=== PATIENT | female | born 1970 | race Caucasian/White ===

== ENCOUNTER 2024-01-23 06:03 | Day surgery (SDC) | payer BC, SELFPAY ==
[2024-01-23] VITALS (8 sets, daily range): BP systolic 93–106; BP diastolic 48–64; BMI 20.5
[2024-01-23] MEDS: NORMOSOL-R 1000 IV (06:38)
--- NOTE | 2024-01-23 06:57 | HP.FOC2 ---
Addendum entered and electronically signed by Jayme Ashton MD 01/23/24 07:21:
pt also reports right sided pain at semilunar line, umbilical level with intermittent swelling. after discussion regarding options - observation, radiographic imaging, dx laparoscopic with associated risks/benefits she is requesting dx lap for
eval. procedure reviewed with patient obtaining consent. at bedside.
Original Note:
Focused History & Physical
Chief Complaint
HPI:
Chief Complaint: Ventral hernia
HPI / Indication for Planned Procedure: Patient is a 53-year-old female who has had a long standing history of a small protrusion present just superior to the umbilical region. This is slightly larger in size than previously and occasional
tenderness/discomfort in the area with exertional activities or exercise. She presents today for scheduled operative correction.
Relevant Past Medical History: Other (Hypothyroidism, allergic rhinitis)
Relevant Social History: Negative
Relevant Family History: Negative
Relevant Past Surgical History: Positive for (Tonsils)
Review of Systems
Review of Pertinent Systems: All Systems Negative
Medication
See Medication form for detailed medications: Yes
Medication List (including Herbals & OTC):
Glucosamine Chondroitin 2 cap PO DAILY 01/18/24
Multi-Vitamin 1 tab PO DAILY 01/18/24
Vitamin C 1 tab PO PRN PRN preventative 01/18/24
calcium-vitamin D3 3 tab PO DAILY 01/18/24
levothyroxine 88 mcg tablet (Synthroid) 88 mcg PO .6 DAYS/WEEK 01/18/24
magnesium glycinate 2 cap PO DAILY 01/18/24
Medications Reviewed: Yes
Allergies and Reactions
Patient has Allergies: Yes
Noted Allergies and Reactions:
Allergy/AdvReac Type Severity Reaction Status Date / Time
adhesive tape Allergy Rash Verified 01/23/24 06:19
Sulfa (Sulfonamide Allergy Rash Verified 01/23/24 06:19
Antibiotics)
Pertinent Physical Exam
All Other Systems: Negative
Head/Neck: Normal
Lungs: Normal
Heart: Normal
Abdomen: Other (Supraumbilical ventral hernia)
Extremities: Normal
Neurological: Normal
Diagnosis / Assessment
53-year-old female presenting for scheduled operative correction of supraumbilical ventral hernia
Plan / Procedure
Open ventral hernia pair, possible mesh
Anesthesia/Sedation to be done by Anesthesia Provider: Yes
--- NOTE | 2024-01-23 06:59 | W.SUR.PREOP ---
Pre-Operative Surgical Note
-
I have examined this patient prior to the performance of the scheduled procedure.
The patient's condition is unchanged from the time of the current History and
Physical and the patient is able to undergo the scheduled procedure.
--- NOTE | 2024-01-23 08:31 | W.IMMPOSTOP ---
Addendum entered and electronically signed by Jayme Ashton MD 01/23/24 08:43:
#[id number]
Original Note:
Surgical Immed Post Op Note
-
Primary Surgeon: Poli
Assisting Surgeon: Dotty Odom
Pre-op Diagnosis: VH and R abdominal pain
Post-op Diagnosis: VH 5mm
Procedure Performed: Dx Laparoscopy; Open primary VHR
Anesthesia Type: GETA + 0.25% Marcaine
Specimen / Cultures: none
Estimated Blood Loss: 4mL
Complications: none immediate
Operative Findings: 5mm VH - utilized for dx lap - single trochar site; primary repair 0 -pds. dx lap unremarkable, no additional hernias or adhesions noted.
== END 2024-01-23 10:35 | disposition home or self-care (01) ==
LOC: SDS 06:03
PROVIDERS: ATTENDING PHYSICIAN Surgery
DX: K43.9 Ventral hernia without obstruction or gangrene (principal); R10.9 Unspecified abdominal pain
CPT/HCPCS: 49320; 49591

== ENCOUNTER → 2024-02-09 10:16 | Outpatient (REF) | payer BC, SELFPAY ==
[2024-02-09 12:42] LABS: Free T4 1.47 ng/dl (0.78-2.19)
[2024-02-09 12:57] LABS: TSH 3.51 uIU/ml (0.47-4.68)
== END ==
LOC: REG 10:16
PROVIDERS: ATTENDING PHYSICIAN Internal Medicine Endocrinology, Diabetes & Metabolism; FAMILY PHYSICIAN Internal Medicine
DX: E03.9 Hypothyroidism, unspecified (principal)
CPT/HCPCS: 36415; 84439; 84443

== ENCOUNTER → 2024-04-16 08:23 | Outpatient (REF) | payer BC, SELFPAY | LOC: RAD 08:23 | PROVIDERS: ATTENDING PHYSICIAN Internal Medicine Cardiovascular Disease; FAMILY PHYSICIAN Internal Medicine | DX: E78.00 Pure hypercholesterolemia, unspecified (principal) | CPT/HCPCS: 93922 ==

== ENCOUNTER 2024-05-11 19:48 | Emergency (ER) | payer BC, SELFPAY ==
[2024-05-11 19:50] VITALS: BP 111/68
--- NOTE | 2024-05-11 20:34 | ED.SKININJ ---
HPI-Injury
General
Chief Complaint: Bite
Source: patient
Exam Limitations: none
Time Seen by Provider: 05/11/24 20:26
Nursing documentation reviewed up to this point in time: agreed with
Travel History
Have you had any contact with someone who has COVID-19?: No
Do you have any symptoms of coronavirus? Fever > 100 degrees, chills, cough, shortness of breath, sore throat, loss of taste or smell, muscle aches, or headache?: No
History of Present Illness-Injury
Initial Injury comments:
54 yo female with puppy bite on nose . Her face was close to the puppy and he had a toy so he nipped her nose. She is unsure of her last tetanus immunization but wants to call her PCP to find if she needs 1
Past History
Past History
ED Past Medical History: Hypothyroidism
Social History
Tobacco: Non-smoker
Personal:
Living: with family
Review of Systems
Review of Systems
Allergies reviewed?: Yes
All Other Systems: ROS reviewed and negative except as documented in HPI and ROS
Skin: Reports other (Dog bite of nose)
Skin Exam
Laceration
tip of nose:
Length in cm: 0.6
Orientation: horizontal
Type of Laceration: simple (relatively superficial laceration.)
Any active bleeding?: no active bleeding
Phy Exam
Physical Exam
Physical Exam:
PHYSICAL EXAMINATION:
General: no apparent distress, not acutely ill
Neuro: alert and oriented.
Psychiatric: well kept. interactive and cooperative
Musculoskeletal: Moves with ease
Skin: Warm, pink.
Course
Orders/Labs/Results
Orders:
Orders
05/11/24 20:40
Amoxicillin 875 mg/Clav 125 mg [Augmentin 875 mg/125 mg] 1 tablet PO NOW STA
Vital Signs
Initial and Last Documented VS:
Initial Vital Signs
Temp Pulse Resp BP Pulse Ox
97.8 F 71 14 111/68 98
05/11/24 19:50 05/11/24 19:50 05/11/24 19:50 05/11/24 19:50 05/11/24 19:50
Last Documented Vital Signs
Temp Pulse Resp BP Pulse Ox
97.8 F 71 14 111/68 98
05/11/24 19:50 05/11/24 19:50 05/11/24 19:50 05/11/24 19:50 05/11/24 19:50
Procedures
Laceration Closure
tip of nose:
Status of Wound: clean
Size of Wound in cm: 0.6
Description of Wound Edges: sharp
Preparation: cleaned with saline
Type of Closure: Dermabond-skin glue (edges well approximated)
MDM/Problems Addressed
MDM/Problems Addressed:
54 yo female with puppy bite on nose . Her face was close to the puppy and he had a toy so he nipped her nose. She is unsure of her last tetanus immunization but wants to call her PCP to find if she needs 1
Puppy is up-to-date with its immunizations
No gaping wound, after irrigating copiously with NSS, edges well approximated with wound glue
antibiotics started
She declines when Tdap ordered and states she will check with her PCP and get it if due.
*Critical Care Note
Total Time (30-74mins, 75-104mins- exclusive of procedures): Not Applicable
ED Attending Note
-
Portions of this chart may have been created with voice recognition software.� Occasional wrong word or��sound alike� substitutions may have occurred due to the inherent limitations of voice recognition software.
Discharge Plan
Departure
Patient Disposition: Home (Routine Discharge)
Date of Disposition: 05/11/24
Time of Disposition: 20:51
Patient with high blood pressure during this ER visit?: No
Condition: Good
Discharge Problem:
Dog bite of nose
Instructions: Animal Bites (DC)
Prescriptions:
New
amoxicillin-pot clavulanate 875-125 mg tablet
1 tab PO BID Qty: 13 0RF
No Action
levothyroxine [Synthroid] 88 mcg Tablet
88 mcg PO .6 DAYS/WEEK
Rx Instructions:
Patient must have actual SYNTHROID, not levothyroxine
Glucosamine Chondroitin
2 cap PO DAILY
Multi-Vitamin
1 tab PO DAILY
Vitamin C
1 tab PO PRN PRN (Reason: preventative)
calcium-vitamin D3 300 mg tablet
3 tab PO DAILY
magnesium glycinate
2 cap PO DAILY
acetaminophen [Tylenol Extra Strength] 500 mg tablet
1,000 mg PO Q6HPRN PRN (Reason: mild pain) Qty: 1 0RF
ibuprofen 200 mg tablet
400 - 600 mg PO Q6HPRN PRN (Reason: moderate pain) Qty: 1 0RF
polyethylene glycol 3350 [Miralax] 17 gram/dose powder
4 g PO DAILY PRN (Reason: Constipation) Qty: 119 0RF
Rx Instructions:
start a laxative such as MIRALAX on day 2 after surgery if no bowel movement yet as long as no nausea/vomiting and passing gas
oxycodone 5 mg tablet
5 mg PO Q4HPRN PRN (Reason: breakthrough/severe pain) Qty: 5 0RF
Referrals:
Your, doctor [Other] - As needed
UNKNOWN - PT DOES,NOT KNOW [Family Provider] -
Activity Restrictions/Additional Instructions:
As we discussed, it takes about 7 days for this area to heal. The glue should slough off by itself within 10 days.
Seek medical care immediately for increasing redness, swelling, pus drainage, fever or feeling worse in any way.
I sent a prescription to your pharmacy for the Augmentin 875 mg to take twice a day for 7 days. While taking the antibiotic, take a probiotic or eat yogurt daily to avoid diarrhea
Interventions
Interventions:
*Risk Screen - Suicide Last Done: 05/11/24 19:50
*General Assessment Last Done: 05/11/24 19:50
*Neglect/Abuse Screening Last Done: 05/11/24 19:50
ED- Fall Risk Assessment Last Done: 05/11/24 20:55
*Nursing Disposition Last Done: 05/11/24 20:55
ED-Skin Assessment Last Done: 05/11/24 19:59
Discharge Date and Time
Discharge Date/Time: 05/11/24 20:55
Print Language: UPPER SORBIAN
[2024-05-11] MEDS: AUGMENTIN 875 MG/125 MG 1 TABLET PO (20:50)
[2024-05-12] MEDS: ADACEL 0.5 ML IM (00:54)
== END 2024-05-11 20:55 | disposition home or self-care (01) ==
LOC: EMR 19:48
PROVIDERS: EMERGENCY PHYSICIAN Emergency Medicine
DX: S01.25XA Open bite of nose, initial encounter (principal); W54.0XXA Bitten by dog, initial encounter; E03.9 Hypothyroidism, unspecified; Z88.2 Allergy status to sulfonamides; Z91.048 Other nonmedicinal substance allergy status
CPT/HCPCS: 99283; 12011; 90715

== ENCOUNTER → 2024-05-22 08:00 | Outpatient (REF) | payer BC, SELFPAY | LOC: WOUND 08:00 | PROVIDERS: ATTENDING PHYSICIAN Surgery; FAMILY PHYSICIAN Family Medicine | DX: S01.25XA Open bite of nose, initial encounter (principal); W54.0XXA Bitten by dog, initial encounter | CPT/HCPCS: 99203 ==

== ENCOUNTER → 2025-01-01 07:46 | Outpatient (REF) | payer BC, SELFPAY ==
[2025-01-01 09:47] LABS: Free T4 1.22 ng/dl (0.78-2.19)
[2025-01-01 10:00] LABS: TSH 0.53 uIU/ml (0.47-4.68)
== END ==
LOC: REG 07:46
PROVIDERS: ATTENDING PHYSICIAN Internal Medicine Endocrinology, Diabetes & Metabolism; FAMILY PHYSICIAN Internal Medicine
DX: E03.9 Hypothyroidism, unspecified (principal)
CPT/HCPCS: 36415; 84439; 84443

== ENCOUNTER → 2025-06-10 06:44 | Outpatient (REF) | payer BC, SELFPAY ==
[2025-06-10 07:39] LABS: Hematocrit 38.8 % (37.0-47.0); Hemoglobin 12.8 g/dL (12.0-16.0); Mean Corp Hgb Conc. 33.0 g/dL (33.0-37.0); Mean Corpuscular Volume 91.3 fL (81.0-99.0); Nucleated Red Blood Cells % 0 %; Platelet Count 128 10^3/uL (130-400); Red Cell Dist. Width 12.7 % (11.5-14.5)
[2025-06-10 08:12] LABS: ALT (SGPT) 26 U/L (0-35); AST (SGOT) 29 U/L (14-36); Albumin 4.4 g/dl (3.5-5.0); Alkaline Phosphatase 57 U/L (38-126); Blood Urea Nitrogen 10 mg/dl (7-17); Calcium 9.5 mg/dl (8.4-10.2); Carbon Dioxide 29 mmol/L (22-30); Chloride 107 mmol/L (98-107); Glucose 95 mg/dl (70-99); HDL Cholesterol 52 mg/dl; LDL Cholesterol, Calculated 121 mg/dl; Potassium 4.5 mmol/L (3.5-5.1); Sodium 140 mmol/L (135-145); Total Protein 6.9 g/dl (6.3-8.2); Very Low Density Lipoprotein 12 mg/dl (0-30); eGFR > 60.00
== END ==
LOC: REG 06:44
PROVIDERS: ATTENDING PHYSICIAN Internal Medicine
DX: Z00.00 Encounter for general adult medical examination without abnormal findings (principal)
CPT/HCPCS: 36415; 80053; 80061; 84443; 85025